=== PATIENT | male | born 1955 | race Caucasian/White ===

== ENCOUNTER → 2018-06-17 09:10 | Outpatient (CLI) | payer MEDICARE, SELFPAY ==
[2018-06-17 11:09] LABS: Alanine Aminotransferase 31 U/L (12-78); Albumin Level 3.5 gm/dL (3.4-5.0); Alkaline Phosphatase 85 U/L (46-116); Anion Gap 11.5 mEq/L (5-15); Aspartate Amino Transferase 14 U/L (15-37); Bilirubin,Total 0.5 mg/dL (0.2-1.0); Blood Urea Nitrogen 20 mg/dL (7-18); Calcium 8.6 mg/dL (8.5-10.1); Carbon Dioxide 28 mmol/L (21.0-32.0); Chloride 103 mmol/L (98-107); Chol/HDL Ratio 2.8 (1-3.5); Cholesterol 139 mg/dL (140-200); Creatinine,Serum 1.05 mg/dL (0.70-1.30); Estimated Glomerular Filt Rate 71 ml/min (>60); GFR (African American) 86 ML/MIN (>60); Globulin 3.5 gm/dl (1.3-3.2); Glucose 139 mg/dL (74-106); HDL Cholesterol 49 mg/dL (27-67); LDL Cholesterol 68 mg/dL (0-130); Potassium 4.5 mmoL/L (3.5-5.1); Sodium 138 mmol/L (136-145); Triglycerides 111 mg/dL (30-200); VLDL Cholesterol 22 mg/dL (0-40)
== END ==
PROVIDERS: Visit Provider Nurse Practitioner Family
DX: I25.10 Atherosclerotic heart disease of native coronary artery without angina pectoris (principal); I10 Essential (primary) hypertension
CPT/HCPCS: 36415; 80053; 80061

== ENCOUNTER → 2018-07-01 10:50 | Outpatient (POV) | payer MEDICARE, SELFPAY ==
[2018-07-01 11:07] VITALS: BP 140/80; PULSE 57; RESP 18; O2SAT 98
--- NOTE | 2018-07-01 11:44 | XR_ITS ---
XR sacroiliac joint BI min 3V CLINICAL INDICATION: ITS.REASON: SI JOINT PAIN ORDERING PHYSICIAN: Yvette Pineda PATIENT AGE: 63 years Comparison: None FINDINGS: The SI joints have an unremarkable appearance. No evidence of fusion or sclerosis. There are mild osteoarthritic changes of the hips with subarticular cystic changes. IMPRESSION: 1. Unremarkable SI joints. 2. Mild osteoarthritic changes of the hips
--- NOTE | 2018-07-01 12:03 | HMH.PMCON ---
Assessment and Plan (1) Sacroiliitis Current visit: Yes Status: Chronic Category: Medical Code(s): M46.1 - Sacroiliitis, not elsewhere classified - Assessment and plan all Dx Assessment and Plan for all problems:: To the patient's reaction to prednisone I do not believe an injection should be considered at this time. We will change him to duexis due to his history of bleeding ulcers. We will also start him on gabapentin 100 mg at bedtime to see if this is beneficial. I will also recommend that he utilizes an SI joint belt and we will get an x-ray of his SI joints. We will see the patient back in 2 weeks. This note was dictated using voice recognition software and may contain errors or omissions HPI - Data of Consult Consult date: 07/01/18 Requesting Physician: Yvette Pineda APRN Primary Care Provider: Jm Mondragon MD - Consult Narrative Reason for consult: Back pain History of present illness: Mr. Isabel is a 63 year old male in today for consultation in regards to his low back pain. Patient states that he has back pain around his belt line and it goes into his buttock. Patient denies any movement of the pain down his leg. He says he has numbness at times. Patient states mowing and laying in bed he rates his pain while nothing really decreases it. He is on meloxicam. Patient has completed physical therapy with no relief. He rates his pain a 4 out of 10 today. Patient is unable to take prednisone orally. Patient states he has had cortisone injections when he was a kid however the last time he took oral prednisone he had a serious reaction. CC: Yvette Pineda APRN [facility] History I have reviewed the patient's past medical history: Yes Medical History: Reports:: Heart Murmur, Hyperlipidemia, Hypertension Denies:: Cancer, Diabetes Mellitus Type 1, Diabetes Mellitus Type 2, MRSA Laterality Cases: Left: Arthroscopy Knee Other Surgeries: Yes: Cardiac Catheterization, Coronary Stent Amputation: No - *Social History Smoking Status: Never smoker Alcohol Intake: never Occupational Status: employed Housing: house - Psychiatric History Expresses thoughts of harming self/others: None Suicide Plan Description: No Plan Review of Systems - Review of Systems ROS General: no recent weight change, no fever, no sleep disturbances Respiratory: no cough, no shortness of air, no recurring pulmonary infections Cardiovascular/Peripheral Vascular: No chest pain, No palpitations, no edema, no shortness of breath. Gastrointestinal: no incontinence, normal bowel movements reported Genitourinary: no incontinence Musculoskeletal: SI joint pain Psychiatric: normal mood/ affect Neurological: [denies weakness in extremities], [denies balance issues] Meds Home Medications Medication Instructions Recorded Confirmed Type Aspirin [Aspir 81] 81 mg PO DAILY 10/19/17 10/19/17 History B12/Levomefolate Calcium/B-6 1 each PO DAILY 10/19/17 10/19/17 History [Folbic Rf Tablet] Losartan Potassium [Cozaar] 50 mg PO DAILY 10/19/17 10/19/17 History Meloxicam 15 mg PO DAILY 10/19/17 10/19/17 History Omeprazole [Omeprazole 40mg 40 mg PO DAILY 10/19/17 10/19/17 History Capsule] Pravastatin Sodium [Pravachol 40mg 40 mg PO HS 10/19/17 10/19/17 History Tablet] Allergies Allergy/AdvReac Type Severity Reaction Status Date / Time prednisone Allergy Mild Verified 10/19/17 15:55 bisoprolol [From ZIAC] Allergy Unknown I-HIVES Verified 10/19/17 15:55 hydrochlorothiazide Allergy Unknown I-HIVES Verified 10/19/17 15:55 [From ZIAC] methocarbamol [From ROBAXIN] Allergy Unknown WEAKNESS Verified 10/19/17 15:55 naproxen [From NAPROSYN] Allergy Unknown Verified 10/19/17 15:55 Objective Vital signs: Pulse Resp BP Pulse Ox 57 L 18 140/80 98 07/01/18 11:07 07/01/18 11:07 07/01/18 11:07 07/01/18 11:07 Narrative: Physical Exam General: Alert and oriented x3, no acute d
--- NOTE | 2018-07-01 12:06 | P.CONS_ITS ---
Assessment and Plan (1) Sacroiliitis Current visit: Yes Status: Chronic Category: Medical Code(s): M46.1 - Sacroiliitis, not elsewhere classified - Assessment and plan all Dx Assessment and Plan for all problems:: To the patient's reaction to prednisone I do not believe an injection should be considered at this time. We will change him to duexis due to his history of bleeding ulcers. We will also start him on gabapentin 100 mg at bedtime to see if this is beneficial. I will also recommend that he utilizes an SI joint belt and we will get an x-ray of his SI joints. We will see the patient back in 2 weeks. This note was dictated using voice recognition software and may contain errors or omissions HPI - Data of Consult Consult date: 07/01/18 Requesting Physician: Yvette Pineda APRN Primary Care Provider: Jm Mondragon MD - Consult Narrative Reason for consult: Back pain History of present illness: Mr. Isabel is a 63 year old male in today for consultation in regards to his low back pain. Patient states that he has back pain around his belt line and it goes into his buttock. Patient denies any movement of the pain down his leg. He says he has numbness at times. Patient states mowing and laying in bed he rates his pain while nothing really decreases it. He is on meloxicam. Patient has completed physical therapy with no relief. He rates his pain a 4 out of 10 today. Patient is unable to take prednisone orally. Patient states he has had cortisone injections when he was a kid however the last time he took oral prednisone he had a serious reaction. CC: Yvette Pineda APRN [facility] History I have reviewed the patient's past medical history: Yes Medical History: Reports:: Heart Murmur, Hyperlipidemia, Hypertension Denies:: Cancer, Diabetes Mellitus Type 1, Diabetes Mellitus Type 2, MRSA Laterality Cases: Left: Arthroscopy Knee Other Surgeries: Yes: Cardiac Catheterization, Coronary Stent Amputation: No - *Social History Smoking Status: Never smoker Alcohol Intake: never Occupational Status: employed Housing: house - Psychiatric History Expresses thoughts of harming self/others: None Suicide Plan Description: No Plan Review of Systems - Review of Systems ROS General: no recent weight change, no fever, no sleep disturbances Respiratory: no cough, no shortness of air, no recurring pulmonary infections Cardiovascular/Peripheral Vascular: No chest pain, No palpitations, no edema, no shortness of breath. Gastrointestinal: no incontinence, normal bowel movements reported Genitourinary: no incontinence Musculoskeletal: SI joint pain Psychiatric: normal mood/ affect Neurological: [denies weakness in extremities], [denies balance issues] Meds Home Medications Medication Instructions Recorded Confirmed Type Aspirin [Aspir 81] 81 mg PO DAILY 10/19/17 10/19/17 History B12/Levomefolate Calcium/B-6 1 each PO DAILY 10/19/17 10/19/17 History [Folbic Rf Tablet] Losartan Potassium [Cozaar] 50 mg PO DAILY 10/19/17 10/19/17 History Meloxicam 15 mg PO DAILY 10/19/17 10/19/17 History Omeprazole [Omeprazole 40mg 40 mg PO DAILY 10/19/17 10/19/17 History Capsule] Pravastatin Sodium [Pravachol 40mg 40 mg PO HS 10/19/17 10/19/17 History Tablet] Allergies Allergy/AdvReac Type Severity Reaction Status Date / Time
== END ==
PROVIDERS: PCP Internal Medicine Adolescent Medicine; Visit Provider Clinical Nurse Specialist Family Health
DX: M46.1 Sacroiliitis, not elsewhere classified (principal)
CPT/HCPCS: 72202; 99202

== ENCOUNTER → 2018-12-26 13:18 | Outpatient (CLI) | payer MEDICARE, SELFPAY ==
--- NOTE | 2018-12-26 13:26 | XR_ITS ---
XR knee LT 3V HISTORY: Pain ITS.REASON: OSTEOARTHRITIS ORDERING PHYSICIAN: mJ Mondragon MD PATIENT AGE: 63 years COMPARISON: None FINDINGS: There are moderate osteoarthritic changes involving all 3 compartments greatest at the medial compartment and patellofemoral joint with chondrocalcinosis. Prominent osteophytes are present along the medial compartment. No fracture or dislocation. There is a small sclerotic focus involving the distal shaft of the femur at 12 mm nonspecific. IMPRESSION: Moderate osteoarthritis with chondrocalcinosis
--- NOTE | 2018-12-26 13:26 | XR_ITS ---
XR knee RT 3V HISTORY: Follow-up knee replacement ITS.REASON: S/P RT KNEE REPLACEMENT ORDERING PHYSICIAN: Jm Mondragon MD PATIENT AGE: 63 years COMPARISON: None FINDINGS: Status post total replacement. There is good alignment with no evidence of orthopedic complication. IMPRESSION: Unremarkable status post total knee replacement
== END ==
PROVIDERS: PCP Internal Medicine Adolescent Medicine; Visit Provider Internal Medicine Adolescent Medicine
DX: Z96.651 Presence of right artificial knee joint (principal); M17.12 Unilateral primary osteoarthritis, left knee
CPT/HCPCS: 73562

== ENCOUNTER → 2019-02-10 12:06 | Outpatient (CLI) | payer MEDICARE, SELFPAY ==
--- NOTE | 2019-02-10 12:10 | XR_ITS ---
XR knee RT 4V HISTORY: Follow-up knee replacement, pain ITS.REASON: 4 views WB ORDERING PHYSICIAN: Cyndi Salazar MD PATIENT AGE: 63 years COMPARISON: 12/26/2018 FINDINGS: Status post total knee replacement. There is good alignment of the knee prosthesis. No fracture or dislocation. On the lateral view there some minimal calcification developing along the superior patellofemoral region. IMPRESSION: Good alignment status post total knee arthroplasty
--- NOTE | 2019-02-10 12:10 | XR_ITS ---
XR knee LT 4V HISTORY: ITS.REASON: left knee pain ORDERING PHYSICIAN: Cyndi Salazar MD PATIENT AGE: 63 years COMPARISON: 12/26/2018 FINDINGS: Weightbearing views are performed. Moderate osteoarthritic changes are present involving all 3 compartments greater at the medial compartment. There is chondrocalcinosis of the lateral meniscus and to a lesser extent the medial meniscus. No fracture or dislocation. There is a calcific density in the intercondylar region of the distal femur which could be due to a loose body. This is only well seen on the AP notch view IMPRESSION: Moderate osteoarthritis of the left knee with chondrocalcinosis as described above with possible loose body in the intercondylar region of the distal femur overall not significantly changed
== END ==
PROVIDERS: PCP Internal Medicine Adolescent Medicine; Visit Provider Orthopaedic Surgery
DX: M25.562 Pain in left knee (principal); M25.561 Pain in right knee
CPT/HCPCS: 73564

== ENCOUNTER → 2019-03-04 08:57 | Outpatient (CLI) | payer MEDICARE, SELFPAY ==
--- NOTE | 2019-03-04 09:00 | NM_ITS ---
PROCEDURE: NM BONE 3 PHASE CLINICAL INDICATION: knee pain History of total knee replacement with pain and swelling COMPARISON: from 02/10/2019 from 02/10/2019 FINDINGS: Dose: 25.5 mCi technetium MDP Blood flow images show somewhat diffuse increase activity to the right knee which becomes greater along the lateral aspect of the proximal leg area.. Blood pool images show slight increased activity to the lateral aspect of the proximal leg which appears lateral to the prosthesis and distal to the prosthesis and is more soft tissue. Delayed images show increased activity at the medial aspect of the left knee joint with only mild warm activity around the prosthesis. IMPRESSION: Nonspecific findings. Overall, the findings are not consistent with infection or loosening of the right knee prosthesis. There is increased activity within the soft tissues of the proximal leg laterally which could be related to cellulitis. Dictated by: Ranulfo Farfan MD 03/25/2019 09:44 Electronically signed by Ranulfo Farfan MD in [place] 03/25/2019 09:44
--- NOTE | 2019-03-04 09:25 | HMH.ITSHM ---
Current Home Medications as stated by this patient Alberto Isabel II or solar manufacturer's representative. []MELOXICAM LOSARTAN PRAVASTATIN OMEPRAZOLE ASA
== END ==
PROVIDERS: PCP Internal Medicine Adolescent Medicine; Visit Provider Orthopaedic Surgery
DX: T84.032A Mechanical loosening of internal right knee prosthetic joint, initial encounter (principal); M25.561 Pain in right knee
CPT/HCPCS: 78315; A9503

== ENCOUNTER → 2019-03-12 08:48 | Outpatient (CLI) | payer MEDICARE, SELFPAY ==
[2019-03-12 09:37] LABS: Basophils # 0.1 K/mm3 (0-0.2); Basophils % 1.1 % (0.1-2.0); Eosinophils # 0.1 K/mm3 (0.0-0.4); Eosinophils % 2.2 % (0.1-12.0); Hemoglobin 15.4 g/dL (14.1-18.0); Lymphocytes % 33.4 % (10-50); Mean Corpuscular HGB Conc 33.5 g/dL (31.8-35.4); Mean Corpuscular Hemoglobin 30.1 pg (27.0-31.2); Mean Corpuscular Volume 89.8 fl (80-94); Mean Platelet Volume 7.4 fl (7.4-10.4); Monocytes # 0.4 K/mm3 (0.1-1.0); Monocytes % 7.2 % (1.7-9.3); Neutrophils # 3.4 K/mm3 (1.8-7.8); Neutrophils % 56.2 % (37.0-80.0); Platelet Count 263 K/mm3 (142-424); Red Blood Count 5.12 M/mm3 (4.60-6.20); Red Cell Distribution Width 13.1 % (11.5-17.5)
[2019-03-12 11:13] LABS: Anion Gap 11.6 mEq/L (5-15); Blood Urea Nitrogen 25 mg/dL (7-18); C-Reactive Protein 0.2 mg/dL (0.0-0.9); Calcium 9.3 mg/dL (8.5-10.1); Carbon Dioxide 29 mmol/L (21.0-32.0); Chloride 103 mmol/L (98-107); Creatinine,Serum 1.16 mg/dL (0.70-1.30); Erythrocyte Sedimentation Rate 8 mm/hr (0-20); Estimated Glomerular Filt Rate 63 ml/min (>60); GFR (African American) 77 ML/MIN (>60); Glucose 151 mg/dL (74-106); Potassium 4.6 mmoL/L (3.5-5.1); Sodium 139 mmol/L (136-145)
== END ==
PROVIDERS: Visit Provider Orthopaedic Surgery
DX: G89.29 Other chronic pain (principal); M25.569 Pain in unspecified knee; Z96.659 Presence of unspecified artificial knee joint; S61.219A Laceration without foreign body of unspecified finger without damage to nail, initial encounter
CPT/HCPCS: 36415; 80048; 85025; 85651; 86140

== ENCOUNTER → 2019-08-13 14:17 | Outpatient (CLI) | payer MEDICARE, OTHER, SELFPAY ==
--- NOTE | 2019-08-13 14:32 | XR_ITS ---
PROCEDURE: XR CHEST 2V CLINICAL HISTORY: BRADYCARDIA, SOB Bradycardia, shortness of breath COMPARISON: CXR CHEST(2 VIEWS-NOT PORTABLE) from 01/18/2013 FINDINGS: The cardiomediastinal silhouette and pulmonary vascularity are within normal limits. The lungs are clear without infiltrates, suspicious nodules, or pleural effusions. No acute bony abnormalities. IMPRESSION: No acute findings. Dictated by: Ranulfo Farfan MD 08/13/2019 14:54 Electronically signed by Ranulfo Farfan MD in [place] 08/13/2019 14:54
--- NOTE | 2019-08-13 14:56 | ECG_ITS ---
APPROVED REPORT Exam: Resting ECG HR:53 bpm ECG Measurements Heart Rate 53 AXES AR 162 P 33 QRSd 92 QRS 15 QT 434 T 32 QTc 407 <Conclusion> Sinus bradycardia Otherwise normal ECG Electronically signed by : Jm Mondragon, 08/16/2019 21:00:01
== END ==
PROVIDERS: PCP Internal Medicine Adolescent Medicine; Visit Provider Nurse Practitioner Family
DX: R00.2 Palpitations (principal); R06.02 Shortness of breath
CPT/HCPCS: 71046; 93005

== ENCOUNTER → 2019-08-15 16:45 | Outpatient (CLI) | payer MEDICARE, OTHER, SELFPAY ==
--- NOTE | 2019-08-15 14:56 | ECG_ITS ---
APPROVED REPORT Exam: Resting ECG HR:53 bpm ECG Measurements Heart Rate 53 AXES DE 162 P 33 QRSd 92 QRS 15 QT 434 T 32 QTc 407 <Conclusion> Sinus bradycardia Otherwise normal ECG Electronically signed by : Fabricio Oliva, 08/18/2019 17:49:23
== END ==
PROVIDERS: PCP Internal Medicine Adolescent Medicine; Visit Provider Internal Medicine Adolescent Medicine
DX: R00.1 Bradycardia, unspecified (principal)
CPT/HCPCS: 93005; 93225; 93226

== ENCOUNTER → 2020-07-19 08:41 | Outpatient (CLI) | payer MEDICARE, OTHER, SELFPAY ==
--- NOTE | 2020-07-19 08:54 | CT_ITS ---
PROCEDURE: CT ABDOMEN PELVIS WO/W CON CLINICAL INDICATION: acute prostatitis, frequent urination 75ml iso 370 prior wo, 04/03/13 COMPARISON: CT ABDPELW/O CT ABD PELVIS W/O CONTRAST from 04/03/2013 TECHNIQUE: IV Contrast: 75ML Isovue 370 Oral Contrast None Axial images obtained with sagittal and coronal reformats. All CT scans at the facility use one or more dose reduction, viz: automated exposure control, ma/kV adjustment per patient size (including targeted exams where dose is matched to indication, i.e. head), or iterative reconstruction technique. FINDINGS: Patchy areas of increased density are present in the lung bases posteriorly on both sides. Coronary artery calcifications are present. The liver, gallbladder, spleen, adrenal glands, and pancreas have an unremarkable appearance. There are nonobstructing punctate bilateral renal calculi. The largest stone on the right is in the mid upper pole at 4 mm. There is a 10 by 5 mm stone in the distal right ureter just proximal to the ureterovesical junction. There is some minimal thickening of the ureter around this stone. No hydronephrosis is evident. There is a duplicated right renal collecting system. The ureters may joint distally at the area of the stone.. No ureteral calculi are evident on the left. No intestinal obstruction or free air. No evidence of appendicitis there is colonic diverticulosis but no evidence of diverticulitis. The prostate is enlarged at 4.9 x 4.9 cm. There is nodular contour of the prostate greater along the anterior aspect on the right. There is a small left inguinal hernia containing fat. There is a small umbilical hernia containing fat. Nonspecific mild thickening of the urinary bladder wall. Degenerative changes are present in the lumbar spine and lower thoracic spine. There is mild lumbar scoliosis convex right. IMPRESSION: 1. 10 x 5 mm right distal ureteral stone. 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 The ureters appear to join at the level of or just proximal to the ureteral stone. There is no evidence of hydronephrosis or ureteral dilatation. 2. Nonobstructing bilateral renal calculi. 3. Patchy density in the lung bases posteriorly suggesting bibasilar pneumonitis. 4. Enlarged prostate and other nonacute findings as described above Dictated by: Ranulfo Farfan MD 07/20/2020 11:38 Ranulfo Farfan MD in [place] 07/20/2020 11:38
[2020-07-19 09:15] LABS: Blood Urea Nitrogen 18 mg/dl (9-20); Estimated Glomerular Filt Rate 67 ml/min (>60); GFR (African American) 81 ML/MIN (>60)
== END ==
PROVIDERS: PCP Internal Medicine Adolescent Medicine; Visit Provider Nurse Practitioner Family
DX: R10.11 Right upper quadrant pain (principal); R35.0 Frequency of micturition; N41.0 Acute prostatitis
CPT/HCPCS: 36415; 74178; 82565; 84520; Q9967

== ENCOUNTER → 2020-07-23 15:35 | Outpatient (CLI) | payer MEDICARE, OTHER, SELFPAY ==
[2020-07-23 17:05] LABS: Prostate Specific Ag, Diagnost 1.66 ng/ml (0.0-4.0)
== END ==
PROVIDERS: Visit Provider Urology
DX: N40.0 Benign prostatic hyperplasia without lower urinary tract symptoms (principal)
CPT/HCPCS: 36415; 84153

== ENCOUNTER → 2020-07-30 12:47 | Outpatient (CLI) | payer MEDICARE, OTHER, SELFPAY ==
--- NOTE | 2020-07-30 12:50 | XR_ITS ---
PROCEDURE: XR KUB CLINICAL INDICATION: kidney stone Mild lumbar curvature convex right. COMPARISON: CT CT ABDOMEN PELVIS WO/W CON from 07/19/2020 FINDINGS: There is a persistent 8 mm calcific density overlying the right and mid aspect of the sacrum which may be related to a residual distal ureteral stone. There is a 3 mm calcific density in the right upper quadrant and may be related to a right kidney stone. IMPRESSION: Right-sided pelvic calcification overlying the sacrum which may represent a persistent distal ureteral calculus Dictated by: Ranulfo Farfan MD 07/30/2020 13:50 Ranulfo Farfan MD in [place] 07/30/2020 13:50
== END ==
PROVIDERS: PCP Internal Medicine Adolescent Medicine; Visit Provider Urology
DX: N20.0 Calculus of kidney (principal)
CPT/HCPCS: 74018

== ENCOUNTER → 2020-09-10 14:00 | Outpatient (CLI) | payer MEDICARE, OTHER, SELFPAY ==
--- NOTE | 2020-09-10 14:06 | XR_ITS ---
PROCEDURE: XR KUB CLINICAL INDICATION: ureteral stone Right ureteral stone COMPARISON: CT CT ABDOMEN PELVIS WO/W CON from 07/19/2020 FINDINGS: There is a 5 mm calcification in the right pelvic region consistent with a distal ureteral stone. Degenerative changes are present in the SI joints and within the lumbar spine and hips. IMPRESSION: 5 mm right ureterovesical junction stone Dictated by: Ranulfo Farfan MD 09/10/2020 14:37 Ranulfo Farfan MD in [place] 09/10/2020 14:37
== END ==
PROVIDERS: PCP Internal Medicine Adolescent Medicine; Visit Provider Urology
DX: N20.1 Calculus of ureter (principal)
CPT/HCPCS: 74018

== ENCOUNTER → 2020-11-12 13:18 | Outpatient (CLI) | payer MEDICARE, OTHER, SELFPAY ==
--- NOTE | 2020-11-12 13:26 | XR_ITS ---
PROCEDURE: XR KUB CLINICAL INDICATION: kidney stone COMPARISON: CT CT ABDOMEN PELVIS WO/W CON from 07/19/2020 FINDINGS: Right nephrolithiasis. Mild lumbar scoliosis convex right. A lobulated calcific density is present in the right paracentral aspect of the pelvis measuring approximately 12 mm x 5 mm consistent with a persistent distal ureteral stone. IMPRESSION: 12 mm right ureterovesical junction stone with right-sided nephrolithiasis. Dictated by: Ranulfo Farfan MD 11/12/2020 15:23 Ranulfo Farfan MD in [place] 11/12/2020 15:23
== END ==
PROVIDERS: PCP Internal Medicine Adolescent Medicine; Visit Provider Urology
DX: N20.0 Calculus of kidney (principal)
CPT/HCPCS: 74018

== ENCOUNTER → 2021-06-08 08:10 | Outpatient (CLI) | payer MEDICARE, OTHER, SELFPAY ==
[2021-06-08 15:13] LABS: Alanine Aminotransferase 16 U/L (12-78); Albumin Level 3.8 g/dl (3.5-5.0); Albumin/Globulin Ratio 1.5 (1.1-1.8); Alkaline Phosphatase 60 U/L (38-126); Anion Gap 6.3 mEq/L (5-15); Aspartate Amino Transferase 27 U/L (17-59); Bilirubin,Total 0.5 mg/dl (0.2-1.3); Blood Urea Nitrogen 22 mg/dl (9-20); Calcium 8.6 mg/dl (8.4-10.2); Carbon Dioxide 30 mmol/L (22.0-30.0); Chloride 99 mmol/L (98-107); Chol/HDL Ratio 2.8 (1-3.5); Cholesterol 113 mg/dl (140-200); Estimated Glomerular Filt Rate 75 ml/min (>60); GFR (African American) 90 ML/MIN (>60); Globulin 2.5 g/dL (1.3-3.2); Glucose 115 mg/dl (74-100); HDL Cholesterol 41 mg/dl (40-60); Potassium 4.3 mmoL/L (3.5-5.1); Sodium 131 mmol/L (136-145); Total Protein,Serum 6.3 g/dl (6.3-8.2); Triglycerides 104 mg/dl (30-150); Uric Acid 5.5 mg/dl (3.5-8.5); VLDL Cholesterol 21 mg/dL (0-40)
[2021-06-08 15:24] LABS: Direct LDL Cholesterol 53.98 mg/dL (100-129)
== END ==
PROVIDERS: Visit Provider Nurse Practitioner Family
DX: Z00.00 Encounter for general adult medical examination without abnormal findings (principal); I10 Essential (primary) hypertension; E78.5 Hyperlipidemia, unspecified; M25.462 Effusion, left knee
CPT/HCPCS: 36415; 80053; 80061; 84550

== ENCOUNTER → 2021-07-13 11:20 | Outpatient (CLI) | payer MEDICARE, OTHER, SELFPAY ==
[2021-07-13 13:58] LABS: Chloride 103 mmol/L (98-107); Sodium 138 mmol/L (136-145)
[2021-07-13 13:59] LABS: Potassium 4.5 mmoL/L (3.5-5.1)
[2021-07-13 14:01] LABS: Blood Urea Nitrogen 28 mg/dl (9-20); Estimated Glomerular Filt Rate 84 ml/min (>60); GFR (African American) 102 ML/MIN (>60)
[2021-07-13 14:02] LABS: Anion Gap 13.5 mEq/L (5-15); Calcium 8.8 mg/dl (8.4-10.2); Carbon Dioxide 26 mmol/L (22.0-30.0); Glucose 127 mg/dl (74-100)
== END ==
PROVIDERS: Visit Provider Internal Medicine Adolescent Medicine
DX: E87.1 Hypo-osmolality and hyponatremia (principal); R73.9 Hyperglycemia, unspecified
CPT/HCPCS: 36415; 80048; 83036

== ENCOUNTER 2023-07-07 12:18 | Emergency (ER) | payer MEDICARE, OTHER, SELFPAY ==
[2023-07-07 14:45] VITALS: BP 131/86; PULSE 68; RESP 19; TEMP 37.6; O2SAT 98; BMI 33.2
[2023-07-07 15:06] LABS: UTC Influenza A Antigen Negative (Negative); UTC Influenza B Antigen Negative (Negative)
--- NOTE | 2023-07-07 15:11 | EXP.UTC ---
Discharge Plan Disposition Patient Disposition: Home, Self-Care Condition: Good Prescriptions Prescriptions: New benzonatate 100 mg capsule 100 mg PO TID PRN (Reason: cough) Qty: 30 0RF No Action losartan 50 mg tablet 50 mg PO BID Patient Comments: TAKE 1 TABLET BY MOUTH TWICE DAILY cetirizine 10 mg tablet 10 mg PO DAILY Patient Comments: TAKE 1 TABLET BY MOUTH ONCE DAILY pravastatin 40 mg tablet 40 mg PO HS Patient Comments: TAKE 1 TABLET BY MOUTH EVERY DAY tamsulosin 0.4 mg capsule 0.4 mg PO DAILY Patient Comments: TAKE 1 CAPSULE BY MOUTH ONCE DAILY omeprazole 20 mg capsule,delayed release(DR/EC) 20 mg PO DAILY Patient Comments: TAKE 1 CAPSULE BY MOUTH EVERY DAY hydrochlorothiazide 25 mg tablet 25 mg PO DAILY Patient Comments: TAKE 1 TABLET BY MOUTH EVERY DAY meloxicam 15 MG tablet 15 mg PO DAILY Referrals Follow up/Referrals: Jm Mondragon MD [Primary Care Provider] - See instructions Clinical Impressions Clinical Impression: Upper respiratory tract infection Qualifiers: URI type: unspecified viral URI Qualified Code(s): J06.9 - Acute upper respiratory infection, unspecified Instructions Patient Instructions: DI for Viral Upper Respiratory Infection -- Adult Discharge ED Provider: Judy Marroquin [facility] General Stated complaint: cough, weakness, sore, congestion, fever Mode of Arrival: Ambulatory Source of Information: Patient Limitations: No Limitations Time Seen by Provider: 07/07/23 15:10 Description of Symptoms (Recalled from Triage Doc. by RN): PATIENT C/O COUGH, BODY ACHES, AND CHEST PAIN WITH COUGHING SINCE YESTERDAY HEENT Symptoms (Recalled from RN notes): No Resp Symptoms (Recalled from RN notes): Yes Skin Symptoms (Recalled from RN notes): No MS Symptoms (Recalled from RN notes): No Functional Status (Recalled from RN notes): WNL History of Present Illness Provider Complaint: Pt relates that he started having body aches, runny nose, cough, and fever yesterday. He has not taken anything for his symptoms. Related Data Home Medications Medication Instructions Recorded Confirmed meloxicam 15 mg tablet 15 mg PO DAILY Arthritis 10/19/17 07/07/23 cetirizine 10 mg tablet 10 mg PO DAILY 07/07/23 07/07/23 hydrochlorothiazide 25 mg tablet 25 mg PO DAILY 07/07/23 07/07/23 losartan 50 mg tablet 50 mg PO BID 07/07/23 07/07/23 omeprazole 20 mg capsule,delayed 20 mg PO DAILY 07/07/23 07/07/23 release pravastatin 40 mg tablet 40 mg PO HS 07/07/23 07/07/23 tamsulosin 0.4 mg capsule 0.4 mg PO DAILY 07/07/23 07/07/23 Previous Rx's Medication Instructions Recorded benzonatate 100 mg capsule 100 mg PO TID PRN cough #30 caps 07/07/23 Allergies Allergy/AdvReac Type Severity Reaction Status Date / Time prednisone Allergy Mild Verified 11/12/20 13:27 bisoprolol [From ZIAC] Allergy Unknown I-HIVES Verified 11/12/20 13:27 hydrochlorothiazide Allergy Unknown I-HIVES Verified 11/12/20 13:27 [From ZIAC] methocarbamol [From ROBAXIN] Allergy Unknown WEAKNESS Verified 11/12/20 13:27 naproxen [From NAPROSYN] Allergy Unknown Verified 11/12/20 13:27 Worker's Comp Is this a Worker's Comp case?: No [facility] Disclaimer: The information contained in this section may have been updated after the patient was seen, as this information can be updated by other users. Medical History (Updated 07/07/23 @ 15:23 by Judy Marroquin APRN) Hyperlipidemia Hypertension Prostate disorder Urinary tract infection Surgical History (Updated 07/07/23 @ 15:07 by Gisele Khan RN) History of cardiac cath Social History Smoking Status: Never smoker alcohol intake: never substance use type: denies use current occupational status: retired and other Travel in the last 8 weeks: None household members: family housing: house ROS Obtained: Yes All systems reviewed & no additional complai
[2023-07-07 15:26] VITALS: BP 131/86; PULSE 68; RESP 19; TEMP 37.6; O2SAT 98
[2023-07-07 15:39] LABS: Adenovirus,PCR Not Detected (NotDetected); Coronavirus 19, PCR Not Detected (NotDetected); Coronavirus 229E Not Detected (NotDetected); Coronavirus NL63 Not Detected (NotDetected); Coronavirus OC43 Not Detected (NotDetected); Coronovirus HKU1,PCR Not Detected (NotDetected); Human Metapneumovirus Not Detected (NotDetected); Influenza A, PCR Not Detected (NotDetected); Influenza AH1, PCR Not Detected (NotDetected); Influenza AH3,PCR Not Detected (NotDetected); Influenza B, PCR Not Detected (NotDetected); Parainfluenza 1, PCR Not Detected (NotDetected); Parainfluenza 2, PCR Not Detected (NotDetected); Parainfluenza 3, PCR Not Detected (NotDetected); Parainfluenza 4, PCR Not Detected (NotDetected); Respiratory Syncytial Virus Not Detected (NotDetected); Rhinovirus/Enterovirus Not Detected (NotDetected)
[2023-07-07 19:32] LABS: Influenza AH1, 2009 Detected (NotDetected)
== END 2023-07-07 15:33 | disposition home or self-care (01) ==
PROVIDERS: Emergency Provider Nurse Practitioner Family; PCP Internal Medicine Adolescent Medicine
DX: J10.1 Influenza due to other identified influenza virus with other respiratory manifestations (principal); R50.9 Fever, unspecified; R51.9 Headache, unspecified; R07.1 Chest pain on breathing; R05.9 Cough, unspecified; R07.0 Pain in throat; R09.81 Nasal congestion; R53.81 Other malaise; M79.18 Myalgia, other site; I10 Essential (primary) hypertension; E78.5 Hyperlipidemia, unspecified
CPT/HCPCS: 87632; 87635; 87804; 99204; 99212; G0463

== ENCOUNTER 2024-07-08 11:47 | Outpatient (CLI) | payer MEDICARE, OTHER, SELFPAY ==
--- NOTE | 2024-07-08 11:55 | XR_ITS ---
FINAL REPORT CLINICAL HISTORY: cough FINDINGS: No acute pulmonary density is evident. There is no evidence of effusion or other pleural disease. The mediastinum has a normal appearance. The cardiac silhouette is unremarkable. IMPRESSION: Unremarkable chest exam. Reviewed, Interpreted and Dictated by Martin Moses MD Transcribed by Maria Fernanda Rebolledo Authenticated and [facility]
== END 2024-07-08 23:59 | disposition home or self-care (01) ==
LOC: RAD 11:51
PROVIDERS: PCP Internal Medicine Adolescent Medicine; Visit Provider Student in an Organized Health Care Education/Training Program
DX: R05.9 Cough, unspecified (principal)
CPT/HCPCS: 71046